=== PATIENT | female | born 1990 | race African-American/Black ===

== ENCOUNTER 2020-04-21 10:45 | Emergency (ER) | payer OTHER ==
[2020-04-21 11:25] LABS: BASOPHILS % (AUTO) 0.4 %; EOSINOPHILS % (AUTO) 0.8 %; HGB - HEMOGLOBIN 13.9 g/dL (12.0-16.0); LYMPHOCYTES # (AUTO) 1.9 10^3/uL (1.5-3.5); LYMPHOCYTES % (AUTO) 36.6 %; MEAN CORPUSCULAR HEMOGLOBIN 29.1 pg (27.0-31.0); MEAN CORPUSCULAR HGB CONC 36.8 g/dL (32.0-36.0); MEAN CORPUSCULAR VOLUME 79.1 fL (81.0-99.0); MEAN PLATELET VOLUME 11.1 fL (7.9-10.8); MONOCYTES # (AUTO) 0.5 10^3/uL (0.0-1.0); MONOCYTES % (AUTO) 9.8 %; NEUTROPHILS # (AUTO) 2.8 10^3/uL (1.5-6.6); NEUTROPHILS % (AUTO) 52.2 %; PLT - PLATELET COUNT 336 10^3/uL (130-450); RED BLOOD COUNT 4.78 10^6/uL (4.20-5.40); RED CELL DISTRIBUTION WIDTH 13.1 % (12.0-15.0); WHITE BLOOD COUNT 5.3 x10^3/uL (4.8-10.8)
--- NOTE | 2020-04-21 11:36 | ED Physician Documentation ---
PD HPI FEMALE - Stated complaint Stated Complaint: - Chief complaint Chief Complaint: Abd Pain - History obtained from History obtained from: Patient - History of Present Illness Timing - onset: How many weeks ago (1) Timing - duration: Weeks (1) Timing - details: Gradual onset, Still present Associated symptoms: Vaginal bleeding. 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 She states that she took a test last month before her period that was negative and this month she has taken 5 test they have all been positive. She had faint positives 2 days ago and this has darkened up in color now. Today she has developed more spotting than she has had in the past week she had faint spotting only and today she has some old blood appearance. She denies any pain she has had some morning nausea she has some soreness to her breasts and otherwise doing well. Review of Systems Constitutional: denies: Fever Eyes: denies: Decreased vision Ears: denies: Ear pain Nose: denies: Congestion Throat: denies: Sore throat Cardiac: denies: Chest pain / pressure, Palpitations Respiratory: denies: Dyspnea, Cough GI: reports: Nausea. denies: Abdominal Pain, Abdominal Swelling, Vomiting, Constipation, Diarrhea : denies: Dysuria, Frequency Skin: denies: Rash Musculoskeletal: denies: Neck pain, Back pain, Extremity pain PD PAST MEDICAL HISTORY - Past Medical History Past Medical History: No - Past Surgical History Past Surgical History: No - Present Medications Home Medications: Ambulatory Orders Medication Instructions Recorded Confirmed No Known Home Medications 04/21/20 04/21/20 - Allergies Allergies/Adverse Reactions: Allergies Allergy/AdvReac Type Severity Reaction Status Date / Time No Known Drug Allergies Allergy Verified 04/21/20 10:50 - Social History Does the pt smoke?: No Smoking Status: Never smoker Does the pt drink ETOH?: No Does the pt have substance abuse?: No - Immunizations Immunizations are current?: Yes - POLST Patient has POLST: No PD ED PE NORMAL - Vitals Vital signs reviewed: Yes (hypertensive mild systolic ) - General General: Alert and oriented X 3, No acute distress, Well developed/nourished - HEENT HEENT: Atraumatic, PERRL, EOMI - Respiratory Respiratory: No respiratory distress - Abdomen Abdomen: Normal bowel sounds, Soft, Non tender, Non distended, No organomegaly - Back Back: No CVA TTP, No spinal TTP - Derm Derm: Normal color, Warm and dry, No rash - Extremities Extremities: No deformity, No edema - Neuro Neuro: Alert and oriented X 3, vulcanizer rubber plate 2-12 intact, No motor deficit, No sensory deficit, Normal speech Eye Opening: Spontaneous Motor: Obeys Commands Verbal: Oriented GCS Score: 15 - Psych Psych: Normal mood, Normal affect Results - Vitals Vitals: Vital Signs - 24 hr 04/21/20 04/21/20 10:51 13:15 Temperature 37.4 C 36.5 C Heart Rate 96 88 Respiratory 18 16 Rate Blood Pressure 151/72 H 124/72 O2 Saturation 100 100 Oxygen O2 Source Room air - Labs Labs: Laboratory Tests 04/21/20 04/21/20 04/21/20 11:10 11:10 11:10 WBC 5.3 RBC 4.78 Hgb 13.9 Hct 37.8 MCV 79.1 L MCH 29.1 MCHC 36.8 H RDW 13.1 Plt Count 336 MPV 11.1 H Neut # (Auto) 2.8 Lymph # (Auto) 1.9 [place] # (Auto) 0.5 Eos # (Auto) 0.0 Baso # (Auto) 0.0 Absolute Nucleated RBC 0.00 Nucleated RBC % 0.0 Sodium 134 L Potassium 3.4 L Chloride 104 Carbon Dioxide 21 Anion Gap 9.0 BUN 7 Creatinine 0.6 Estimated GFR (MDRD) 141 Glucose 97 Calcium 8.8 Total Bilirubin 0.9 AST 16 ALT 11 Alkaline Phosphatase 54 Total Protein 7.4 Albumin 4.1 Globulin 3.3 Albumin/Globulin Ratio 1.2 Lipase 187 H HCG, Quant 402.05 Urine Color Urine Clarity Urine pH Ur Specific [place] Urine Protein Urine Glucose (UA) Urine Ketones Urine Occult Blood Urine Nitrite Urine Bilirubin Urine Urobilinogen Ur Leukocyte Esterase Ur Microscopic Review Urine Culture Comments Blood Type 04/21/20 04/21/20 11:10 11:56 WBC RBC Hgb Hct MCV MCH MCHC RDW Plt Count MPV Neut # (Auto) Lymph # (Auto) [place] # (Auto) Eos # (Auto) Baso # (Auto) Absolute Nucleated RBC Nucleated RBC % Sodium Potassium Chloride Carbon Dioxide Anion Gap BUN Creatinine Estimated GFR (MDRD) Glucose Calcium Total Bilirubin AST ALT Alkaline Phosphatase Total Protein Albumin Globulin Albumin/Globulin Ratio Lipase HCG, Quant Urine Color YELLOW Urine Clarity CLEAR Urine pH 7.5 Ur Specific [place] 1.020 Urine Protein NEGATIVE Urine Glucose (UA) NEGATIVE Urine Ketones TRACE Urine Occult Blood NEGATIVE Urine Nitrite NEGATIVE Urine Bilirubin NEGATIVE Urine Urobilinogen 0.2 (NORMAL) Ur Leukocyte Esterase NEGATIVE Ur Microscopic Review NOT INDICATED Urine Culture Comments NOT INDICATED Blood Type A POSITIVE - Rads (name of study) pelvic u/s Radiology: Prelim report reviewed (Impression: An intrauterine is not confirmed on the study. Within the uterus fundus, there is a small amount of fluid seen, which may represent products of conception versus reactive fluid. Differential diagnosis includes spontaneous miscarriage, early , and ectopic . ), Final report received ( Close clinical follow-up with serial beta hCG measurements and serial ultrasound would be recommended as clinically appropriate.), EMP read indepedently, See rad report PD MEDICAL DECISION MAKING - ED course Complexity details: reviewed results, re-evaluated patient, considered differential, d/w patient ED course: 30 y/o female with early and spotting has a quant of about 402 and nothing visualized on formal ultrasound evaluation. She will need follow up hCG and u/s. Departure - Departure Disposition: 01 Home, Self Care Clinical Impression: Hemorrhage, , early Condition: Stable Instructions: ED Abdominal Pain Rule Out Ectopic, ED Miscarriage Poss Follow-Up: KIM Rivera [Provider Group] Comments: Today it is too early to see a by ultrasound. The hCG number today was 402. You will need to get this re-checked in the coming week. You will need another ultrasound in 3-5 weeks. Discharge Date/Time: 04/21/20 13:15
[2020-04-21 12:08] LABS: CREATININE 0.6 mg/dL (0.4-1.0)
[2020-04-21 12:09] LABS: ALBUMIN 4.1 g/dL (3.2-5.5); ALBUMIN/GLOBULIN RATIO 1.2 (1.0-2.2); BILIRUBIN,TOTAL 0.9 mg/dL (0.2-1.0); CALCIUM 8.8 mg/dL (8.5-10.3); TOTAL PROTEIN 7.4 g/dL (6.7-8.2)
[2020-04-21 12:14] LABS: BILIRUBIN,URINE NEGATIVE (NEGATIVE); GLUCOSE, URINE (UA) NEGATIVE (NEGATIVE); KETONES,URINE (UA) TRACE mg/dL (NEGATIVE); LEUKOCYTE ESTERASE, URINE NEGATIVE (NEGATIVE); NITRITE,URINE NEGATIVE (NEGATIVE); OCCULT BLOOD,URINE NEGATIVE (NEGATIVE); PH,URINE 7.5 PH (5.0-7.5); PROTEIN,URINE NEGATIVE (NEGATIVE); UROBILINOGEN,URINE 0.2 (NORMAL) E.U./dL (NORMAL)
[2020-04-21 12:20] LABS: CLARITY,URINE CLEAR (CLEAR)
--- NOTE | 2020-04-21 13:02 | Ultrasound Report ---
PROCEDURE: OB First Trimester w/TV INDICATIONS: early spotting OUTSIDE/PRIOR DATING DATA: Last menstrual period (LMP): 03/23/2020. LMP-based estimated date of delivery (KAL): None given. First dating scan (date and location): Not applicable. Estimated date of delivery (KAL) from first dating scan: Not applicable. TECHNIQUE: Real-time scanning was performed of the fetus and maternal pelvic organs, with image documentation. Endovaginal scanning was also performed to better visualize the fetus and maternal ovaries. COMPARISON: None. FINDINGS: Embryo: No definite findings of an intrauterine can be seen. Within the fundus of uterus, there is a mild area of poorly defined fluid seen, measuring 7 x 5 x 10 mm. There is no gestational s ac. Measurement variability in dating: +/- 4 weeks by LMP, +/- 7 days by mean sac diameter (use before 6 weeks gestation if crown-rump length not able to be measured), +/- 5 days by crown-rump length (6-12 weeks gestation). Maternal organs: Ovaries are within normal limits, with a likely left ovarian corpus luteum measurin g up to 2.2 cm. Uterine fibroids are seen, which measure up to 1.4 cm. IMPRESSION: An intrauterine is not confirmed on this study. Within the uterine fundus, there is a small amount of fluid seen, which may represent products of con ception versus reactive fluid. Differential diagnosis includes spontaneous miscarriage, early , an ectopic . Close clinical follow-up with serial beta hCG measurements and serial ultrasound would be recommended , as clinically appropriate. Note: Concordant preliminary findings given by the research laboratory manager upon the completion of the examination to Dr. Vergara at 12:40 PM on 04/21/2020. Reviewed by: Jose C Brown MD on 04/21/2020 12:01 PM [facility] Approved by: Jose C Brown MD on 04/21/2020 12:01 PM [facility] Station ID: [id number]
[2020-04-21 13:16] VITALS: BP 124/72
== END 2020-04-21 13:15 | disposition home or self-care (01) ==
LOC: ED 10:45
DX: O20.9 Hemorrhage in early pregnancy, unspecified (principal)
CPT/HCPCS: 36415; 80053; 81001; 81003; 83690; 84702; 85025; 86900; 86901; 87086; 99284